=== PATIENT | male | born 1950 | race African-American/Black ===

== ENCOUNTER 2019-12-26 14:33 | Inpatient (IN) | payer OTHER, MEDICAID ==
[2019-12-26] VITALS (7 sets, daily range): BP systolic 143–153; BP diastolic 21–100
[~2019-12-26] VITALS: Ht 175.3 cm; Wt 74.4 kg
[2019-12-26] MEDS ORDERED: SODIUM CHLORIDE 0.9% 1,000 ML IV ONE (14:55)
[2019-12-26 15:59] LABS: BASOPHILS % 0.1 % (0.0-2.0); EOSINOPHILS % 0.3 % (0.0-5.0); HEMOGLOBIN. 12.7 g/dL (14.0-18.0); LYMPHOCYTES % 8.6 % (20.0-50.0); MEAN CORPUSCULAR HEMOGLOBIN 29.1 pg (28.0-32.0); MEAN CORPUSCULAR VOLUME 91.8 fL (80.0-94.0); MEAN PLATELET VOLUME 12.1 fl (7.4-10.4); MONOCYTES % 4.6 % (2.0-8.0); NEUTROPHILS % 86.4 % (40.0-76.0); PLATELET 113 x1000/uL (130-400); RED BLOOD CELL COUNT 4.36 mill/uL (4.7-6.1); RED CELL DISTRIBUTION WIDTH 18.5 % (11.6-14.6)
[2019-12-26 16:05] LABS: CHLORIDE 112 mEq/L (98-107)
[2019-12-26] MEDS ORDERED: MAGNESIUM 1 G PREMIX 100 ML IV ONE (16:30)
[2019-12-26] MEDS ORDERED: KCL 20MEQ/100ML PREMIX 100 ML IV ONE (16:30)
[2019-12-26] MEDS ORDERED: POTASSIUM CHLORIDE 20MEQ TABLET SR PO ONE ×2 (16:30→18:00)
[2019-12-26] MEDS ORDERED: ASPIRIN 325MG EC TABLET PO ONE (16:45)
[2019-12-26] MEDS ORDERED: IPRATROPIUM/ALBUTEROL 0.5-3(2.5)MG/3ML NEB NEB PRN (18:00)
[2019-12-26] MEDS ORDERED: MORPHINE SULFATE 2 MG/ML CPJ (NOT FOR IM USE) IV PRN (18:00)
[2019-12-26] MEDS ORDERED: NITROGLYCERIN 0.4MG TABLET SL SL PRN (18:00)
[2019-12-26] MEDS ORDERED: ZOLPIDEM TARTRATE 5MG TABLET PO PRN ×2 (18:00)
[2019-12-26] MEDS ORDERED: DOCUSATE SODIUM 100MG CAPSULE PO PRN (18:00)
[2019-12-26] MEDS ORDERED: GUAIFENESIN 200MG/10ML SUGAR FREE UDC PO PRN (18:00)
[2019-12-26] MEDS ORDERED: ONDANSETRON HCL 4MG/2ML INJ IV PRN (18:00)
[2019-12-26] MEDS ORDERED: TRAMADOL 50MG TABLET PO PRN (18:00)
[2019-12-26] MEDS ORDERED: ACETAMINOPHEN 325MG TABLET PO PRN (18:00)
[2019-12-26] MEDS ORDERED: MAGNESIUM/ALUMINUM HYDROXIDE/SIMETHICONE 30ML UDC PO PRN (18:00)
[2019-12-26] MEDS ORDERED: CLONIDINE 0.1MG TABLET PO PRN (18:00)
[2019-12-26 18:28] LABS: CLARITY URINE CLEAR (CLEAR); COLOR URINE DARK YELLOW (YELLOW); KETONES URINE NEGATIVE (NEGATIVE); LEUKOCYTE ESTERASE URINE 1+ (NEGATIVE); NITRITE URINE NEGATIVE (NEGATIVE); OCCULT BLOOD URINE NEGATIVE (NEGATIVE); PH URINE 7.5 (4.5-8.0); PROTEIN URINE 2+ (NEGATIVE); SPECIFIC GRAVITY URINE 1.016 (1.005-1.030)
[2019-12-26 18:51] LABS: *AMPHETAMINES SCREEN URINE NEGATIVE (NEGATIVE); *BARBITURATES SCREEN URINE NEGATIVE (NEGATIVE); *BENZODIAZEPINES SCREEN URINE NEGATIVE (NEGATIVE); *COCAINE SCREEN URINE NEGATIVE (NEGATIVE)
[2019-12-26 18:52] LABS: CANNABINOID URINE SCREEN PRESUMTIVE POSITIVE (NEGATIVE); METHADONE URINE SCREEN NEGATIVE (NEGATIVE); OPIATES URINE SCREEN NEGATIVE (NEGATIVE); PHENCYCLIDINE URINE SCREEN NEGATIVE (NEGATIVE)
[2019-12-26 19:58] LABS: T4 FREE 1.21 ng/dL (0.76-1.46)
[2019-12-26 20:13] LABS: FOLIC ACID (FOLATE) SERUM 4.6 ng/mL (>5.38)
[2019-12-26] MEDS ORDERED: SODIUM CHLORIDE 0.9% 1000ML BAG (SEPSIS BOLUS) IV ONE (21:30)
[2019-12-26] MEDS ORDERED: CEFTRIAXONE 1 G PREMIX 50 ML IV SCH (22:00)
[2019-12-26] MEDS ORDERED: LEVOFLOXACIN 500MG PREMIX 100 ML IV SCH (22:00)
[2019-12-26] MEDS: METOPROLOL TARTRATE 25MG TABLET PO SCH (22:39)
[2019-12-26] MEDS: ASCORBIC ACID 500 MG TABLET PO SCH (22:40)
[2019-12-26] MEDS: ENOXAPARIN 80MG/0.8ML SYR SUBCUT SCH (22:45)
[2019-12-26] MEDS: FAMOTIDINE 20MG TABLET PO SCH (22:46)
[2019-12-27] VITALS (15 sets, daily range): BP systolic 123–157; BP diastolic 72–119
[2019-12-27 06:36] LABS: HEMATOCRIT. 36.7 % (42.0-52.0); HEMOGLOBIN. 11.3 g/dL (14.0-18.0); MEAN CORPUSCULAR HEMOGLOBIN 28.6 pg (28.0-32.0); MEAN CORPUSCULAR VOLUME 92.8 fL (80.0-94.0); MEAN PLATELET VOLUME 11.8 fl (7.4-10.4); PLATELET 99 x1000/uL (130-400); RED BLOOD CELL COUNT 3.95 mill/uL (4.7-6.1); RED CELL DISTRIBUTION WIDTH 18.3 % (11.6-14.6)
[2019-12-27 06:49] LABS: CHLORIDE 120 mEq/L (98-107)
[2019-12-27 06:59] LABS: CREATINE KINASE 111 IU/L (39-308)
[2019-12-27 07:01] LABS: CREATINE KINASE MB FRACTION 2.2 ng/mL (0.5-3.6)
[2019-12-27 08:37] LABS: INR 1.4; PROTHROMBIN TIME 15.2 sec (9.6-11.0)
[2019-12-27] MEDS: ENOXAPARIN 80MG/0.8ML SYR SUBCUT SCH (08:45)
[2019-12-27] MEDS: ZINC SULFATE 220 MG ( 50 ) CAPSULE PO SCH (08:45)
[2019-12-27] MEDS: FAMOTIDINE 20MG TABLET PO SCH (08:45)
[2019-12-27] MEDS: ASCORBIC ACID 500 MG TABLET PO SCH ×2 (08:46→20:58)
[2019-12-27] MEDS: METOPROLOL TARTRATE 25MG TABLET PO SCH (08:46)
[2019-12-27] MEDS ORDERED: ASPIRIN 325MG EC TABLET PO SCH (09:00)
[2019-12-27] MEDS: ASPIRIN 81MG TABLET PO SCH (10:15)
[2019-12-27 10:37] LABS: NUCLEATED RED BLOOD CELLS 4 /100 WBC; PLATELET ESTIMATE DECREASED
[2019-12-27] MEDS: LOSARTAN POTASSIUM 25 MG TABLET PO SCH (10:38)
[2019-12-27] MEDS: CEFTRIAXONE 1 G PREMIX 50 ML IV SCH (15:17)
[2019-12-27] MEDS: PANTOPRAZOLE SODIUM 40 MG/VIAL IV SCH (18:55)
[2019-12-27] MEDS: THIAMINE HCL 100MG TABLET PO SCH (18:56)
[2019-12-27] MEDS: MULTIVITAMINS,THER W-MINERALS TABLET PO SCH (18:58)
[2019-12-27 20:27] LABS: HEPATITIS B SURFACE ANTIGEN NEGATIVE
[2019-12-27 20:57] LABS: HEPATITIS A AB IGM NEGATIVE (NEGATIVE)
[2019-12-27] MEDS: CARVEDILOL 3.125 MG TABLET PO SCH (20:59)
[2019-12-27] MEDS: LEVOFLOXACIN 250MG PREMIX 50 ML IV SCH (21:37)
[2019-12-27] MEDS ORDERED: SODIUM CHLORIDE 0.9% 1,000 ML IV SCH (21:45)
[2019-12-27] MEDS ORDERED: SODIUM CHLORIDE 0.9% 1000ML BAG (SEPSIS BOLUS) IV ONE (21:45)
[2019-12-27] MEDS: SODIUM CHLORIDE 0.9% 1,000 ML IV SCH (22:02)
[2019-12-28] VITALS (11 sets, daily range): BP systolic 106–152; BP diastolic 62–82
[2019-12-28 07:35] LABS: HEMATOCRIT. 39.7 % (42.0-52.0); HEMOGLOBIN. 12.6 g/dL (14.0-18.0); MEAN CORPUSCULAR HEMOGLOBIN 29.3 pg (28.0-32.0); MEAN CORPUSCULAR VOLUME 91.8 fL (80.0-94.0); MEAN PLATELET VOLUME 12.2 fl (7.4-10.4); PLATELET 128 x1000/uL (130-400); RED BLOOD CELL COUNT 4.32 mill/uL (4.7-6.1); RED CELL DISTRIBUTION WIDTH 18.2 % (11.6-14.6)
[2019-12-28 07:39] LABS: INR 1.7; PROTHROMBIN TIME 18.5 sec (9.6-11.0)
[2019-12-28] MEDS: LOSARTAN POTASSIUM 25 MG TABLET PO SCH (08:51)
[2019-12-28] MEDS: ASCORBIC ACID 500 MG TABLET PO SCH ×2 (08:51→21:43)
[2019-12-28] MEDS: ENOXAPARIN 40MG/0.4ML SYR SUBCUT SCH (08:51)
[2019-12-28] MEDS: THIAMINE HCL 100MG TABLET PO SCH (08:51)
[2019-12-28] MEDS: PANTOPRAZOLE SODIUM 40 MG/VIAL IV SCH (08:51)
[2019-12-28] MEDS: ZINC SULFATE 220 MG ( 50 ) CAPSULE PO SCH (08:51)
[2019-12-28] MEDS: ASPIRIN 81MG TABLET PO SCH (08:52)
[2019-12-28] MEDS: MULTIVITAMINS,THER W-MINERALS TABLET PO SCH (08:52)
[2019-12-28] MEDS: CARVEDILOL 3.125 MG TABLET PO SCH ×2 (08:52→21:00)
[2019-12-28] MEDS: DOCUSATE SODIUM 100MG CAPSULE PO SCH ×2 (08:52→17:00)
[2019-12-28] MEDS ORDERED: ASPIRIN 81MG EC TABLET PO SCH (09:00)
[2019-12-28] MEDS: SODIUM CHLORIDE 0.9% 1,000 ML IV SCH (10:21)
[2019-12-28 13:40] LABS: NUCLEATED RED BLOOD CELLS 6 /100 WBC
[2019-12-28 13:47] LABS: PLATELET ESTIMATE SLIGHTLY DECREASED
[2019-12-28] MEDS: CEFTRIAXONE 1 G PREMIX 50 ML IV SCH (15:09)
[2019-12-28] MEDS: LEVOFLOXACIN 250MG PREMIX 50 ML IV SCH (21:44)
[2019-12-29] VITALS (13 sets, daily range): BP systolic 102–141; BP diastolic 36–89
[2019-12-29] MEDS: SODIUM CHLORIDE 0.9% 1,000 ML IV SCH (00:18)
[2019-12-29] MEDS: THIAMINE HCL 100MG TABLET PO SCH (09:01)
[2019-12-29] MEDS: ASCORBIC ACID 500 MG TABLET PO SCH ×2 (09:01→21:23)
[2019-12-29] MEDS: ZINC SULFATE 220 MG ( 50 ) CAPSULE PO SCH (09:01)
[2019-12-29] MEDS: MULTIVITAMINS,THER W-MINERALS TABLET PO SCH (09:01)
[2019-12-29] MEDS: DOCUSATE SODIUM 100MG CAPSULE PO SCH ×2 (09:01→17:00)
[2019-12-29] MEDS: ASPIRIN 81MG TABLET PO SCH (09:01)
[2019-12-29] MEDS: PANTOPRAZOLE SODIUM 40 MG/VIAL IV SCH (09:01)
[2019-12-29] MEDS: LOSARTAN POTASSIUM 25 MG TABLET PO SCH (09:02)
[2019-12-29] MEDS: CARVEDILOL 3.125 MG TABLET PO SCH ×2 (09:02→21:24)
[2019-12-29] MEDS: ENOXAPARIN 40MG/0.4ML SYR SUBCUT SCH (09:03)
[2019-12-29 09:06] LABS: FOLATE HEMATOCRIT 38.9 % (37.5-51.0)
[2019-12-29 10:12] LABS: HEMATOCRIT. 34.7 % (42.0-52.0); HEMOGLOBIN. 10.9 g/dL (14.0-18.0); MEAN CORPUSCULAR HEMOGLOBIN 29.1 pg (28.0-32.0); MEAN CORPUSCULAR VOLUME 92.2 fL (80.0-94.0); MEAN PLATELET VOLUME 12.8 fl (7.4-10.4); PLATELET 133 x1000/uL (130-400); RED BLOOD CELL COUNT 3.76 mill/uL (4.7-6.1); RED CELL DISTRIBUTION WIDTH 18.6 % (11.6-14.6)
[2019-12-29] MEDS ORDERED: POTASSIUM CHLORIDE 20MEQ TABLET SR PO NR (11:00)
[2019-12-29 11:34] LABS: PLATELET ESTIMATE NORMAL
[2019-12-29] MEDS: DEXTROSE 5% WATER 1,000 ML IV SCH (11:48)
[2019-12-29] MEDS: CEFTRIAXONE 1 G PREMIX 50 ML IV SCH (14:00)
[2019-12-29] MEDS: LEVOFLOXACIN 250MG PREMIX 50 ML IV SCH (21:25)
[2019-12-30] VITALS (12 sets, daily range): BP systolic 108–148; BP diastolic 48–93
[2019-12-30] MEDS: DEXTROSE 5% WATER 1,000 ML IV SCH ×2 (01:26→14:34)
[2019-12-30 06:29] LABS: BASOPHILS % 0.1 % (0.0-2.0); EOSINOPHILS % 0.1 % (0.0-5.0); HEMATOCRIT. 31.6 % (42.0-52.0); HEMOGLOBIN. 10.2 g/dL (14.0-18.0); LYMPHOCYTES % 7.2 % (20.0-50.0); MEAN CORPUSCULAR HEMOGLOBIN 29.4 pg (28.0-32.0); MEAN PLATELET VOLUME 12.6 fl (7.4-10.4); MONOCYTES % 3.7 % (2.0-8.0); NEUTROPHILS % 88.9 % (40.0-76.0); PLATELET 139 x1000/uL (130-400); RED BLOOD CELL COUNT 3.47 mill/uL (4.7-6.1); RED CELL DISTRIBUTION WIDTH 18.5 % (11.6-14.6)
[2019-12-30] MEDS: ASPIRIN 81MG TABLET PO SCH (08:13)
[2019-12-30] MEDS: MULTIVITAMINS,THER W-MINERALS TABLET PO SCH (08:13)
[2019-12-30] MEDS: ASCORBIC ACID 500 MG TABLET PO SCH ×2 (08:13→20:57)
[2019-12-30] MEDS: LOSARTAN POTASSIUM 25 MG TABLET PO SCH (08:14)
[2019-12-30] MEDS: THIAMINE HCL 100MG TABLET PO SCH (08:14)
[2019-12-30] MEDS: DOCUSATE SODIUM 100MG CAPSULE PO SCH ×2 (08:14→17:30)
[2019-12-30] MEDS: CARVEDILOL 3.125 MG TABLET PO SCH ×2 (08:14→20:57)
[2019-12-30] MEDS: ZINC SULFATE 220 MG ( 50 ) CAPSULE PO SCH (08:14)
[2019-12-30] MEDS: PANTOPRAZOLE SODIUM 40 MG/VIAL IV SCH (08:15)
[2019-12-30] MEDS: ENOXAPARIN 40MG/0.4ML SYR SUBCUT SCH (08:15)
[2019-12-30] MEDS: CEFTRIAXONE 1 G PREMIX 50 ML IV SCH (14:37)
[2019-12-30] MEDS: LEVOFLOXACIN 250MG PREMIX 50 ML IV SCH (21:52)
[2019-12-31] VITALS (12 sets, daily range): BP systolic 107–137; BP diastolic 55–79
[2019-12-31] MEDS: DEXTROSE 5% WATER 1,000 ML IV SCH ×3 (03:00→23:40)
[2019-12-31 05:46] LABS: BASOPHILS % 0.3 % (0.0-2.0); EOSINOPHILS % 0.2 % (0.0-5.0); HEMATOCRIT. 30.5 % (42.0-52.0); HEMOGLOBIN. 9.8 g/dL (14.0-18.0); LYMPHOCYTES % 8.4 % (20.0-50.0); MEAN CORPUSCULAR HEMOGLOBIN 29.1 pg (28.0-32.0); MEAN CORPUSCULAR VOLUME 91.1 fL (80.0-94.0); MEAN PLATELET VOLUME 12.3 fl (7.4-10.4); MONOCYTES % 4.6 % (2.0-8.0); NEUTROPHILS % 86.5 % (40.0-76.0); PLATELET 146 x1000/uL (130-400); RED BLOOD CELL COUNT 3.35 mill/uL (4.7-6.1); RED CELL DISTRIBUTION WIDTH 18.6 % (11.6-14.6)
[2019-12-31] MEDS: ZINC SULFATE 220 MG ( 50 ) CAPSULE PO SCH (07:55)
[2019-12-31] MEDS: ASPIRIN 81MG TABLET PO SCH (07:55)
[2019-12-31] MEDS: ASCORBIC ACID 500 MG TABLET PO SCH ×2 (07:55→22:00)
[2019-12-31] MEDS: MULTIVITAMINS,THER W-MINERALS TABLET PO SCH (07:55)
[2019-12-31] MEDS: CARVEDILOL 3.125 MG TABLET PO SCH ×2 (07:55→21:11)
[2019-12-31] MEDS: LOSARTAN POTASSIUM 25 MG TABLET PO SCH (07:55)
[2019-12-31] MEDS: PANTOPRAZOLE SODIUM 40 MG/VIAL IV SCH (07:56)
[2019-12-31] MEDS: DOCUSATE SODIUM 100MG CAPSULE PO SCH ×2 (07:56→17:18)
[2019-12-31] MEDS: ENOXAPARIN 40MG/0.4ML SYR SUBCUT SCH (07:56)
[2019-12-31] MEDS: THIAMINE HCL 100MG TABLET PO SCH (07:56)
[2019-12-31] MEDS ORDERED: POTASSIUM CHLORIDE 20MEQ TABLET SR PO SCH (09:30)
[2019-12-31] MEDS: CEFTRIAXONE 1 G PREMIX 50 ML IV SCH (14:29)
[2019-12-31] MEDS: LEVOFLOXACIN 250MG PREMIX 50 ML IV SCH (21:11)
[2020-01-01] VITALS (13 sets, daily range): BP systolic 115–132; BP diastolic 56–82
[2020-01-01 04:07] LABS: FOLATE RBC 1432 ng/mL (>498)
[2020-01-01] MEDS: DEXTROSE 5% WATER 1,000 ML IV SCH (05:40)
[2020-01-01 07:29] LABS: BASOPHILS % 0.1 % (0.0-2.0); EOSINOPHILS % 0.2 % (0.0-5.0); HEMATOCRIT. 28.8 % (42.0-52.0); HEMOGLOBIN. 9.5 g/dL (14.0-18.0); LYMPHOCYTES % 9.9 % (20.0-50.0); MEAN CORPUSCULAR HEMOGLOBIN 29.7 pg (28.0-32.0); MEAN CORPUSCULAR VOLUME 90.7 fL (80.0-94.0); MEAN PLATELET VOLUME 11.9 fl (7.4-10.4); MONOCYTES % 4.4 % (2.0-8.0); NEUTROPHILS % 85.4 % (40.0-76.0); PLATELET 150 x1000/uL (130-400); RED BLOOD CELL COUNT 3.18 mill/uL (4.7-6.1)
[2020-01-01] MEDS: ZINC SULFATE 220 MG ( 50 ) CAPSULE PO SCH (08:41)
[2020-01-01] MEDS: PANTOPRAZOLE SODIUM 40 MG/VIAL IV SCH (08:41)
[2020-01-01] MEDS: THIAMINE HCL 100MG TABLET PO SCH (08:41)
[2020-01-01] MEDS: LOSARTAN POTASSIUM 25 MG TABLET PO SCH (08:41)
[2020-01-01] MEDS: ASPIRIN 81MG TABLET PO SCH (08:41)
[2020-01-01] MEDS: ENOXAPARIN 40MG/0.4ML SYR SUBCUT SCH (08:41)
[2020-01-01] MEDS: ASCORBIC ACID 500 MG TABLET PO SCH (08:41)
[2020-01-01] MEDS: MULTIVITAMINS,THER W-MINERALS TABLET PO SCH (08:41)
[2020-01-01] MEDS: CARVEDILOL 3.125 MG TABLET PO SCH (08:43)
[2020-01-01] MEDS: DOCUSATE SODIUM 100MG CAPSULE PO SCH ×2 (08:45→17:58)
== END 2020-01-01 20:54 | DRG 280 ==
LOC: ER 14:33 → 3WST 16:58 → EDBEDREQTM 17:07 → SUPCPDRO 17:44 → ENRESERV 18:22 → 3WST 12-27 20:47
PROVIDERS: ADMIT Internal Medicine; ATTEND Internal Medicine
DX: I21.4 Non-ST elevation (NSTEMI) myocardial infarction (principal); N17.0 Acute kidney failure with tubular necrosis; G92 Toxic encephalopathy; I63.9 Cerebral infarction, unspecified; N18.6 End stage renal disease; E87.0 Hyperosmolality and hypernatremia; E44.1 Mild protein-calorie malnutrition; E87.2 Acidosis; I47.2 Ventricular tachycardia; I42.9 Cardiomyopathy, unspecified; D68.9 Coagulation defect, unspecified; I13.2 Hypertensive heart and chronic kidney disease with heart failure and with stage 5 chronic kidney disease, or end stage renal disease; I82.811 Embolism and thrombosis of superficial veins of right lower extremity; E87.6 Hypokalemia; R74.0 Nonspecific elevation of levels of transaminase and lactic acid dehydrogenase [LDH]; D69.6 Thrombocytopenia, unspecified; D64.9 Anemia, unspecified; F17.210 Nicotine dependence, cigarettes, uncomplicated; I50.9 Heart failure, unspecified; I34.0 Nonrheumatic mitral (valve) insufficiency; K57.90 Diverticulosis of intestine, part unspecified, without perforation or abscess without bleeding; D72.829 Elevated white blood cell count, unspecified; F12.10 Cannabis abuse, uncomplicated; I27.21 Secondary pulmonary arterial hypertension; E83.41 Hypermagnesemia; K80.20 Calculus of gallbladder without cholecystitis without obstruction; Z68.24 Body mass index [BMI] 24.0-24.9, adult
CPT/HCPCS: 36415; 70551; 71045; 76700; 76770; 80048; 80053; 80061; 80076; 80305; 80320; 81003; 82140; 82550; 82553; 82607; 82746; 82747; 83036; 83540; 83550; 83605; 83615; 83735; 83880; 84100; 84145; 84439; 84443; 84484; 85014; 85025; 85651; 86705; 86709; 86803; 87340; 93005; 93306; 93970; 97116; 97162; 97166; 97530; 99291; C9113; J0696; J1650; J1956; J2270; J3475; J3480; J7030; J7070; G0480